=== PATIENT | female | born 1985 | race Caucasian/White ===

== ENCOUNTER 2022-08-08 18:57 | Emergency (ER) | payer OTHER ==
[~2022-08-08] VITALS: Ht 165.1 cm; Wt 65.0 kg
[2022-08-08] MEDS ORDERED: ACETAMINOPHEN 325 MG TAB PO ONE (22:45)
[2022-08-08] MEDS ORDERED: ACET-1158 PO (22:54)
[2022-08-08] MEDS ORDERED: CYCL-837 PO (22:54)
[2022-08-09 00:10] VITALS: BP 108/72
== END 2022-08-09 01:09 | disposition home or self-care (01) ==
LOC: EDBD 18:57 → ER 18:57
DX: S16.1XXA Strain of muscle, fascia and tendon at neck level, initial encounter (principal); S29.012A Strain of muscle and tendon of back wall of thorax, initial encounter; S20.213A Contusion of bilateral front wall of thorax, initial encounter; Z88.6 Allergy status to analgesic agent; V89.2XXA Person injured in unspecified motor-vehicle accident, traffic, initial encounter; Y93.89 Activity, other specified; Y92.488 Other paved roadways as the place of occurrence of the external cause; Y99.8 Other external cause status
CPT/HCPCS: 71046; 72070; 72100; 72125; 93005